=== PATIENT | male | born 1975 | race Caucasian/White ===

== ENCOUNTER 2021-07-26 01:28 | Day surgery (SDC) | payer OTHER, SELFPAY ==
[2021-07-12 15:15] VITALS: BMI 35.6
[2021-07-26 11:32] VITALS: BP 124/82; PULSE 95; RESP 18; TEMP 36.3; O2SAT 95
[2021-07-26] MEDS: LACTATED RINGERS 1,000 ML 150 ML IV CONT (11:34)
--- NOTE | 2021-07-26 11:58 | WPDANESEPPF ---
Anes - Initial Pre Proc Eval Procedure: Operation Date: 07/26/21 12:30 Proposed Procedures p Esophagogastroduodenoscopy & Colonoscopy - Johnie Calles MD Date/Time: 07/26/21 11:58 Surgeon: Johnie Calles MD Pre Op Diagnosis: abdominal pain, GERD Patient Data Age: 45 Gender: M Height: 1.68 m Weight: 99 kg Last Vital Signs Temp 36.3 C L 07/26/21 11:32 Pulse 95 07/26/21 11:32 Resp 18 07/26/21 11:32 BP 124/82 07/26/21 11:32 Pulse Ox 95 07/26/21 11:32 Allergies Allergy/AdvReac Type Severity Reaction Status Date / Time No Known Allergies Allergy Unverified 07/26/21 11:32 Home Medications Medication Instructions Recorded Confirmed Type ibuprofen 600 mg tablet 600 mg PO Q6H PRN 06/13/21 07/26/21 History melatonin 5 mg capsule 5 mg PO HS PRN cap 06/13/21 07/26/21 History omeprazole 20 mg capsule,delayed 20 mg PO DAILY 06/13/21 07/26/21 History release psyllium husk (with sugar) 3 1 tbsp PO DAILY 06/13/21 07/26/21 History gram/7 gram oral powder fluticasone propion-salmeterol 1 inh INHALATION DAILY 07/12/21 07/26/21 History [Wixela Inhub] Patient hx anesthesia problems: none Family hx anesthesia problems: none Results Review: All pre-operative results and documents have been reviewed as part of the pre-operative evaluation. [facility] Past Medical History Medical History (Updated 06/13/21 @ 14:17 by Johnie Calles MD) Asthma GERD (gastroesophageal reflux disease) Social History Social History (Updated 07/26/21 @ 12:00 by Manpreet Cook DO) Smoking status: Never smoker Alcohol intake: current Drinks per week: 12 Alcohol use details: 4-5 beers/day Substance use: never Living arrangements: with family Spiritual care concerns: No Anes - Eval Final PreProcedure Day of Procedure 07/26/21 11:58 Patient weight: obese Heart: regular rate and rhythm Lungs: clear to auscultation and normal air movement Airway: Mallampati scale class II Neurological: alert and oriented Last oral intake: >/= 8 hours ASA classification: III Emergent: no Anesthetic plan: proceed Anesthesia type and monitoring: general GIVS and standard monitoring Results Review: All pre-operative results and documents have been reviewed as part of the pre-operative evaluation. Informed Consent: The patient's anesthetic plan and its attendant risks and benefits were discussed with the patient/family/POA. Questions were solicited and answers provided to the satisfaction of the patient/family/POA.
--- NOTE | 2021-07-26 12:30 | PM.HPGS ---
History of Present Illness History of Present Illness Consent: Risks, benefits, and alternatives have been discussed and questions answered. Patient agrees to proceed with procedure. Chief complaint: abdominal pain, GERD Narrative: Abdiaziz Yang is a 45 year old male with gerd controlled with omeprazole (will have symptoms if does not take it) with 1 year of left abdominal pain. Never had scopes. Review of Systems Constitutional: Constitutional: Denies headache(s) and Denies weakness Eyes: Eyes: Denies blurry vision ENT: Reports Normal hearing present, Denies headache(s) and Denies neck pain Cardiovascular: Cardiovascular: Denies chest pain and Denies dyspnea Respiratory: Respiratory: Denies dyspnea Gastrointestinal: Gastrointestinal: Reports no additional gastrointestinal complaints Genitourinary: Genitourinary: Denies dysuria Musculoskeletal: Musculoskeletal: Denies neck pain Integumentary/Breasts: Skin/Breast: Denies dry skin Neurologic: Reports Normal hearing present, Denies headache(s) and Denies weakness Psychiatric: Psychiatric: Denies anxiety Endocrine: Endocrine: Denies change in body appearance Hematologic/Lymphatic: Hematologic/Lymphatic: Denies easy bleeding Allergic/Immunologic: Allergic/Immunologic: Denies urticaria PMFSH Past Medical History Medical History (Updated 07/26/21 @ 12:31 by Johnie Calles MD) Asthma Colon cancer screening GERD (gastroesophageal reflux disease) Left sided abdominal pain Social History Social History (Updated 07/26/21 @ 12:00 by Manpreet Cook DO) Smoking status: Never smoker Alcohol intake: current Drinks per week: 12 Alcohol use details: 4-5 beers/day Substance use: never Living arrangements: with family Spiritual care concerns: No Meds Home Medications and Allergies Home Medications Medication Instructions Recorded Confirmed Type ibuprofen 600 mg tablet 600 mg PO Q6H PRN 06/13/21 07/26/21 History melatonin 5 mg capsule 5 mg PO HS PRN cap 06/13/21 07/26/21 History omeprazole 20 mg capsule,delayed 20 mg PO DAILY 06/13/21 07/26/21 History release psyllium husk (with sugar) 3 1 tbsp PO DAILY 06/13/21 07/26/21 History gram/7 gram oral powder fluticasone propion-salmeterol 1 inh INHALATION DAILY 07/12/21 07/26/21 History [Wixela Inhub] Allergies Allergy/AdvReac Type Severity Reaction Status Date / Time No Known Allergies Allergy Unverified 07/26/21 11:32 Vital Signs Vital Signs - 24 hr 07/26/21 11:32 Temperature 97.4 F L Pulse Rate 95 Respiratory Rate 18 Blood Pressure 124/82 Pulse Oximetry 95 Exam Const: General: comfortable and no acute distress HENMT: General nose exam: Normal nares present Eyes: General: appearance normal, both eyes and all related structures Neck: Neck: no JVD Resp: Auscultation: clear to auscultation bilaterally Cardio: Rate: regular rate Rhythm: regular rhythm GI: Inspection: non-distended GI Palp: Yes Soft to palpation Skin: General skin exam: normal color Neuro: General: gait normal Speech: normal speech Extrem: General: normal to inspection Psych: Mental Status: mental status grossly normal Assessment and Plan Assessment and plan (1) GERD (gastroesophageal reflux disease): Code(s): K21.9 - Gastro-esophageal reflux disease without esophagitis Status: Acute Assessment and Plan: egd with bx, already on ppi with control of reflux (2) Left sided abdominal pain: Code(s): R10.9 - Unspecified abdominal pain Status: Acute (3) Colon cancer screening: Code(s): Z12.11 - Encounter for screening for malignant neoplasm of colon Status: Acute Assessment and Plan: colonoscopy
--- NOTE | 2021-07-26 12:59 | SUR.OPER ---
EGD ended at 1249. Colonoscopy started at 1255.
[2021-07-26 13:12] VITALS: BP 120/69; PULSE 84; RESP 23; O2SAT 97
[2021-07-26 13:24] VITALS: BP 120/78; PULSE 79; RESP 21; O2SAT 96
[2021-07-26 13:34] VITALS: BP 114/78; PULSE 78; RESP 20; O2SAT 95
== END 2021-07-26 13:37 | disposition home or self-care (01) ==
PROVIDERS: PCP Internal Medicine Geriatric Medicine; Visit Provider Internal Medicine Gastroenterology
PROC: 0DJ08ZZ Inspection of Upper Intestinal Tract, Via Natural or Artificial Opening Endoscopic (ICD-10-PCS; CPT 43235; principal; 2021-07-26 12:30)
DX: Z12.11 Encounter for screening for malignant neoplasm of colon (principal); J45.909 Unspecified asthma, uncomplicated; K21.9 Gastro-esophageal reflux disease without esophagitis; R10.12 Left upper quadrant pain; E66.9 Obesity, unspecified; Z68.35 Body mass index [BMI] 35.0-35.9, adult
CPT/HCPCS: 43239; 45378; 88305; J2704; J7120